=== PATIENT | male | born 1995 | race Native Hawaiian/Other Pacific Islander ===

== ENCOUNTER 2019-07-08 12:37 | Observation (INO) ==
[2019-07-08] MEDS ORDERED: SODIUM CHLORIDE 0.9% 1000ML 1,000 ML IV ONE (13:10)
[2019-07-08] MEDS ORDERED: ONDANSETRON INJ 2 MG/ML 2 ML VIAL IV STA (13:10)
[2019-07-08 13:22] LABS: Basophils # (auto) 0.02 K/uL (0-0.2); Basophils % (auto) 0.2 %; Eosinophils # (auto) 0.26 K/uL (0-0.5); Eosinophils % (auto) 2.5 %; Hematocrit (blood only) 41.2 % (42-52); Hemoglobin 14.6 g/dL (14.0-18.0); Immature Granulocytes # (auto) 0.01 K/uL (0.00-0.02); Immature Granulocytes % (auto) 0.1 %; Lymphocytes # (auto) 1.14 K/uL (1.2-3.4); Lymphocytes % (auto) 10.9 %; Mean Corpuscular Hemoglobin 31.4 pg (25-34); Mean Corpuscular Hgb Conc 35.4 g/dL (32-36); Mean Corpuscular Volume 88.6 fL (80-100); Monocytes # (auto) 0.59 K/uL (0.11-0.59); Monocytes % (auto) 5.7 %; Neutrophils % (auto) 80.6 %; Platelet Count 278 K/uL (130-400); RDW Coefficient of Variation 13.6 % (11.5-14.5); Red Blood Count 4.65 M/uL (4.7-6.1); White Blood Count 10.42 K/uL (4.8-10.8)
[2019-07-08 13:30] LABS: Appearance Urine Clear (Clear); Bilirubin Urine Negative (Negative); Blood Urine Negative (Negative); Color Urine Yellow; Glucose Urine UA Negative (Negative); Ketones Urine Negative (Negative); Leukocyte Esterase Urine Negative (Negative); Nitrite Urine Negative (Negative); Protein Urine Negative (Negative); Specific Gravity Urine 1.013 (1.000-1.030); Urobilinogen Urine Negative (Negative); pH Urine 7.5 (4.5-7.5)
[2019-07-08 13:35] LABS: Albumin Level 4.6 gm/dl (3.4-5.0); BUN Creatinine Ratio 14.6 (10-20); Calcium 9.7 mg/dl (8.5-10.1); Creatinine Clr Calc Pharmacy 129.8 ml/min; Est GFR (African American) 126.3
[2019-07-08 13:38] LABS: Albumin Globulin Ratio 1.3 (0.9-2); Bilirubin,Total 0.7 mg/dl (0.2-1); Globulin 3.5 gm/dl (2.5-4.0); Total Protein 8.1 gm/dl (6.4-8.2)
[2019-07-08 14:12] LABS: Prothrombin Time 10.7 Seconds (9.0-12.0)
[2019-07-08] MEDS ORDERED: IOVERSOL 100ml IV PRN (14:29)
--- NOTE | 2019-07-08 14:41 | CT Scan Report ---
CT OF THE ABDOMEN AND PELVIS WITH CONTRAST CLINICAL HISTORY: Abdominal pain with elevated liver function tests. COMPARISON STUDY: None. TECHNIQUE: Following IV administration of 95 mL of Optiray-320, axial images of the abdomen and pelvi s were obtained from the lung bases to the proximal femurs. Images were reviewed in the axial, sagitt al, and coronal planes. IV contrast was administered without complication. Automated exposure contro l was utilized for the study. A dose lowering technique was utilized adhering to the principles of A BRIDGER. CT DOSE: 328.17 mGy.cm FINDINGS: Lung bases are unremarkable. No pneumatosis, free air or portal venous gas is present. The liver, spleen, adrenal glands, kidneys and pancreas are unremarkable. There is no biliary or pancreat ic ductal dilatation. No peripancreatic or pericholecystic infiltration is noted. There is no hydrone phrosis. The caliber and wall thickness of small and large bowel are normal. The appendix is normal. There is no lymphadenopathy. No suspicious osseous lesions are present. Major vasculature is patent. IMPRESSION: 1. No acute process within the abdomen or pelvis. Normal appendix. No bowel obstruction. 2. Normal appearance of the liver. No biliary ductal dilatation. ACT 112: Negative or not required by law. Electronically signed by: Moose Guerra M.D. 07/08/2019 2:40 PM
--- NOTE | 2019-07-08 14:43 | Emergency Department Note ---
Impression & Plan Abdominal pain, Transaminitis ED Provider Note NAME: JACKI RICKS AGE: 24 SEX: M : 1995 ARRIVES VIA: Walk-In INFORMANT: Patient ED PROVIDER(S): Og Mosher DO CHIEF COMPLAINT: Abdominal pain HPI: Patient is a 22-year-old male who presents the ER for epigastric abdominal pain which started the past 24 hours. He notes that now it may be worse on the left side and describes it as a 6 out of 10. It comes and goes with medication movement. He admits to nausea but no vomiting. He had 2 loose bowel movements. He notes that he was straining earlier today and had some blood when he wiped notes it was several drops. He denies any dark tarry stools. Denies any chest pain, shortness of breath, dizziness, lightheadedness. Patient denies drinking alcohol regularly and Tylenol use. Does admit to smoking marijuana intermittently for anxiety. No other exacerbating or remitting factors. ROS: See above HPI for pertinent positives & negatives. A total of 10 systems reviewed and were otherwise negative. PAST MEDICAL HISTORY:Anxiety PAST SURGICAL HISTORY:None FAMILY HISTORY:See Below SOCIAL HISTORY:Rare alcohol use HOME MEDICATIONS:See Below ALLERGIES:See Below VITALS:See Below PHYSICAL EXAMINATION: GENERAL: Sitting up in bed, alert, well appearing, well nourished, no distress, non-toxic EYE EXAM: normal conjunctiva. OROPHARYNX: no exudate, no erythema, lips, buccal mucosa, and tongue normal and mucous membranes are moist NECK: supple, no nuchal rigidity, no adenopathy, non-tender LUNGS: Clear to auscultation. Normal chest wall mechanics HEART: no murmurs, S1 normal and S2 normal ABDOMEN: abdomen soft, diffuse tenderness worse in the epigastric region, normo- active bowel sounds, no masses, no rebound or guarding. BACK: Back is symmetrical on inspection and there is no deformity, no midline tenderness, no CVA tenderness. SKIN: no rashes and no bruising UPPER EXTREMITIES: upper extremities are grossly normal. LOWER EXTREMITIES: No pitting edema. NEURO EXAM: Normal sensorium, cranial nerves II-XII grossly intact, normal speech, no gross weakness of arms, no gross weakness of legs. MEDICAL DECISION MAKING: Patient is a 22-year-old male who presents the ER for abdominal pain which started in the right upper quadrant. Started about 24 hours ago. He denies any other significant past medical history. Denies regular alcohol use and Tylenol use. He notes that the pain improved yesterday in the right upper quadrant and is now more diffuse. Did have a bloody bowel movement. IV was established bl ood work was obtained shows no significant leukocytosis or anemia. INR unremarkable. BMP with LFTs was remarkable for AST of 200 and ALT of 600. Alk phos was mildly elevated at 140. Bilirubin unremarkable. Lipase unremarkable. UA was negative. CT abdomen pelvis shows no acute pathology. Patient was given IV fluids. Ultrasound of the right upper quadrant was unremarkable. Discussed with on-call gastroenterology who recommended hepatitis panel and admission and discussed with the hospitalist for observation. Discussed with the patient's father who is an orthopedic surgeon and updated him via telephone at bedside with the patient. Triage Nursing notes reviewed. Prior medical records reviewed Vital Signs: reviewed and remarkable for no significant abnormalities Differential diagnosis: Differential diagnoses includes but is not limited to gastritis, peptic ulcer disease, GERD, gallbladder disease, pancreatitis, small bowel obstruction, acute coronary syndrome, pericarditis, ischemic bowel, irritable bowel disease, irritable bowel syndrome, appendicitis, diverticulitis, malignancy, hernia, urinary tract infection, torsion, [/ectopic (if female)], perforation, trauma, infectious. ER treatment provided: See below Diagnostics interpreted by me: ECG: none Cardiac Monitoring: An order was placed for continuous cardiac monitoring. The monitor shows a rate of 66 with sinus rhythm. Laboratory studies: Please see below. Imaging studies: CT of the abdomen pelvis shows no acute pathology. Ultrasound of the gallbladder was unremarkable. Consultation(s): Discussed with Geoff Chaidez from [facility]. Recommended hepatitis panel with admission. Discussed with Dr. Romero from admitting hospitalist and patient was admitted. ED COURSE: Procedures: none Critical Care: None Past Med/Surg History Social History Feels Safe at Home: Yes Smoking Status: Current some day smoker Allergies Allergies Allergy/AdvReac Type Severity Reaction Status Date / Time iodine AdvReac Rash Unverified 07/08/19 14:26 Home Meds Home Medications Medication Instructions Recorded Confirmed Medical Cannabis 1 dose HS PRN 07/08/19 07/08/19 Results & Data (ED) Vital Signs Vital Signs - 24 hr 07/08/19 12:40 07/08/19 14:38 07/08/19 16:01 Temperature 36.7 C Temperature Source Oral Pulse Rate 77 Pulse Rate [Finger] 73 68 Pulse Rhythm [Finger] Regular Regular Pulse Strength [Finger] Normal Respiratory Rate 16 17 14 Respiratory Effort / Characteristics Non-Labored Spontaneous Non-Labored Spontaneous Non-Labored Spontaneous Respiratory Depth Normal Normal Normal Respiratory Pattern Regular Blood Pressure 131/85 Blood Pressure [Right Arm] 121/60 138/77 Blood Pressure Mean 100 Blood Pressure Mean [Right Arm] 80 97 Blood Pressure Position Sitting Pulse Oximetry 96 98 Oxygen Delivery Method Room Air Room Air Room Air Sepsis Recent Fever Within 48 Hours No Sepsis Action Taken by Nursing No Action Required Laboratory Data Result diagrams: 07/08/19 13:08 07/08/19 13:08 Lab Results 07/08/19 07/08/19 07/08/19 Range/Units 13:05 13:08 13:08 WBC 10.42 (4.8-10.8) K/uL RBC 4.65 L (4.7-6.1) M/uL Hgb 14.6 (14.0-18.0) g/dL Hct 41.2 L (42-52) % MCV 88.6 (80-100) fL MCH 31.4 (25-34) pg MCHC 35.4 (32-36) g/dL RDW Std Deviation 44.0 (36.4-46.3) fL RDW Coeff of Kiki 13.6 (11.5-14.5) % Plt Count 278 (130-400) K/uL MPV 10.0 (7.4-10.4) fL Immature Gran % (Auto) 0.1 % Neut % (Auto) 80.6 % Lymph % (Auto) 10.9 % Preston % (Auto) 5.7 % Eos % (Auto) 2.5 % Baso % (Auto) 0.2 % Immature Gran # (Auto) 0.01 (0.00-0.02) K/uL Neut # (Auto) 8.40 H (1.4-6.5) K/uL Lymph # (Auto) 1.14 L (1.2-3.4) K/uL Preston # (Auto) 0.59 (0.11-0.59) K/uL Eos # (Auto) 0.26 (0-0.5) K/uL Baso # (Auto) 0.02 (0-0.2) K/uL PT (9.0-12.0) Seconds INR (0.9-1.1) Sodium 137 (136-145) mmol/L Potassium 4.0 (3.5-5.1) mmol/L Chloride 105 (98-107) mmol/L Carbon Dioxide 27 (21-32) mmol/L Anion Gap 5.0 (3-11) BUN 14 (7-18) mg/dl Creatinine 0.98 (0.6-1.4) mg/dl Est Cr Clr Drug Dosing 129.8 ml/min Est GFR ( Amer) 126.3 Est GFR (Non-Af Amer) 109.0 BUN/Creatinine Ratio 14.6 (10-20) Glucose 118 H (70-99) mg/dl Calcium 9.7 (8.5-10.1) mg/dl Total Bilirubin 0.7 (0.2-1) mg/dl AST 206 H (15-37) U/L ALT 608 H (12-78) U/L Alkaline Phosphatase 140 H (45-117) U/L Total Protein 8.1 (6.4-8.2) gm/dl Albumin 4.6 (3.4-5.0) gm/dl Globulin 3.5 (2.5-4.0) gm/dl Albumin/Globulin Ratio 1.3 (0.9-2) Lipase 89 (73-393) U/L Urine Color Urine Appearance (Clear) Urine pH (4.5-7.5) Ur Specific [place] (1.000-1.030) Urine Protein (Negative) Urine Glucose (UA) (Negative) Urine Ketones (Negative) Urine Blood (Negative) Urine Nitrite (Negative) Urine Bilirubin (Negative) Urine Urobilinogen (Negative) Ur Leukocyte Esterase (Negative) Hep Bs Antigen Neg (Neg) 07/08/19 07/08/19 Range/Units 13:08 13:15 WBC (4.8-10.8) K/uL RBC (4.7-6.1) M/uL Hgb (14.0-18.0) g/dL Hct (42-52) % MCV (80-100) fL MCH (25-34) pg MCHC (32-36) g/dL RDW Std Deviation (36.4-46.3) fL RDW Coeff of Kiki (11.5-14.5) % Plt Count (130-400) K/uL MPV (7.4-10.4) fL Immature Gran % (Auto) % Neut % (Auto) % Lymph % (Auto) % Preston % (Auto) % Eos % (Auto) % Baso % (Auto) % Immature Gran # (Auto) (0.00-0.02) K/uL Neut # (Auto) (1.4-6.5) K/uL Lymph # (Auto) (1.2-3.4) K/uL Preston # (Auto) (0.11-0.59) K/uL Eos # (Auto) (0-0.5) K/uL Baso # (Auto) (0-0.2) K/uL PT 10.7 (9.0-12.0) Seconds INR 1.0 (0.9-1.1) Sodium (136-145) mmol/L Potassium (3.5-5.1) mmol/L Chloride (98-107) mmol/L Carbon Dioxide (21-32) mmol/L Anion Gap (3-11) BUN (7-18) mg/dl Creatinine (0.6-1.4) mg/dl Est Cr Clr Drug Dosing ml/min Est GFR ( Amer) Est GFR (Non-Af Amer) BUN/Creatinine Ratio (10-20) Glucose (70-99) mg/dl Calcium (8.5-10.1) mg/dl Total Bilirubin (0.2-1) mg/dl AST (15-37) U/L ALT (12-78) U/L Alkaline Phosphatase (45-117) U/L Total Protein (6.4-8.2) gm/dl Albumin (3.4-5.0) gm/dl Globulin (2.5-4.0) gm/dl Albumin/Globulin Ratio (0.9-2) Lipase (73-393) U/L Urine Color Yellow Urine Appearance Clear (Clear) Urine pH 7.5 (4.5-7.5) Ur Specific [place] 1.013 (1.000-1.030) Urine Protein Negative (Negative) Urine Glucose (UA) Negative (Negative) Urine Ketones Negative (Negative) Urine Blood Negative (Negative) Urine Nitrite Negative (Negative) Urine Bilirubin Negative (Negative) Urine Urobilinogen Negative (Negative) Ur Leukocyte Esterase Negative (Negative) Hep Bs Antigen (Neg) Administered Medications Ioversol (Optiray 320 100ml) 95 ml IV ONCE PRN PRN Reason: Interaction Checking Stop: 07/12/19 14:28 Last Admin: 07/08/19 14:30 Dose: 95 ml Documented by: [id number] Discontinued Medications Sodium Chloride (Nss 1000ml) 1,000 mls @ 999 mls/hr IV .Q1H1M ONE Stop: 07/08/19 14:10 Last Infusion: 07/08/19 14:23 Dose: 0 mls/hr Documented by: [id number] Admin: 07/08/19 13:15 Dose: 999 mls/hr Documented by: [id number] Ondansetron HCl (Zofran) 4 mg IV NOW STA Stop: 07/08/19 13:11 Last Admin: 07/08/19 13:21 Dose: 4 mg Documented by: [id number] Discharge Plan Visit Data Chief Complaint: Abdominal Pain Stated Complaint: ABDOMINAL PAIN, DIARRHEA, BLODD IN STOOL THIS [facility] ED Provider: Og Mosher Discharge Problem: Abdominal pain, Transaminitis Forms Stand Alone Forms: [employer] Prescriptions Prescriptions: No Action Medical Cannabis 0 mg 1 dose HS PRN (Reason: Anxiety) RF: 0 Referrals Referrals: PCP,NO [Primary Care Provider] - Discharge Problem: Abdominal pain Qualifiers: Abdominal location: unspecified location Qualified Code(s): R10.9 - Unspecified abdominal pain
--- NOTE | 2019-07-08 16:34 | Ultrasound Report ---
US gallbladder HISTORY: 24 years-old Male Transaminitis with right upper quadrant abdominal pain acute right upper quadrant abdominal pain COMPARISON: CT abdomen and pelvis of same day TECHNIQUE: Multiple real-time sonographic images of the abdominal right upper quadrant were obtained assessing grayscale appearance and color flow FINDINGS: Visualized pancreas is unremarkable. The liver is unremarkable without focal mass or intrahepatic dorina iary ductal dilation. The gallbladder is unremarkable without cholelithiasis, wall thickening or azam cholecystic fluid. Sonographic Post sign was not reported. Normal common bile duct, 3 mm. The image d right kidney is unremarkable without hydronephrosis. IMPRESSION: Unremarkable right upper quadrant abdominal ultrasound. ACT 112: Negative or not required by law. The above report was generated using voice recognition software. It may contain grammatical, syntax o r spelling errors. Electronically signed by: Ross Monsalve M.D. 07/08/2019 4:32 PM
[2019-07-08 17:00] LABS: Hepatitis B Surface Antigen Neg (Neg)
[2019-07-08 17:29] LABS: Hepatitis C IgG 13Yrs+Old_Rflx Neg (Neg)
--- NOTE | 2019-07-08 18:08 | History & Physical Report ---
Date of Service July 08, 2019 Assessment & Plan (1) Transaminitis: Unclear etiology. Patient's lab work is essentially normal outside of elevated AST/ALT. Abdominal pain has improved. For now we will treat conservatively with bowel rest and IV fluids. Start clear liquid diet. Repeat LFTs in the morning. If they do increase, continue work-up for other causes of hepatitis. Otherwise consider advancing diet. I do see that the case was previously discussed with GI by the ER and will consult on further recommendations. History of Present Illness Primary Care Provider: NO PCP This is a 24-year-old male without past medical history presents with a complaint abdominal pain. Patient is a good historian. Patient states that the pain started yesterday in the middle of the day. It was mild at first and had started in the right upper quadrant. It moved to the periumbilical region became more severe. He tells me it worsened overnight was quite severe during the day which prompted his evaluation emergency room. At time my evaluation he tells me the pain is improved but not entirely gone. He did have a poor appetite and did not eat anything since yesterday. He has had no nausea or vomiting. He has had no fever or chills. He did have 2 small bowel movements, the second accompanied with a small amount of bright red blood which she felt may have been from straining. He has not noticed any jaundiced. On evaluation, work-up is been mostly negative outside of elevated transaminases. Other markers such as alk phos, bilirubin, and other labs are essentially normal. CT scan of the abdomen along with ultrasound of the biliary tract are all unremarkable as well. Patient is being placed in observation to follow laboratory work. Allergies Allergy/AdvReac Type Severity Reaction Status Date / Time iodine AdvReac Rash Unverified 07/08/19 14:26 Home Medications Home Medications Medication Instructions Recorded Confirmed Type Medical Cannabis 1 dose HS PRN 07/08/19 07/08/19 History Past Med/Surg History Social History Feels Safe at Home: Yes Smoking Status: Current some day smoker Review of Systems Constitutional: no fever, no chills, no weakness, no weight loss and no weight gain Eyes: as per Subjective / HPI Respiratory: no cough, no chest congestion, no dyspnea and no dyspnea on exertion Cardiovascular: no chest pain, no orthopnea, no palpitations, no lightheadedness and no edema Gastrointestinal: + abdominal pain and + blood in stools; no heartburn, no nausea, no vomiting, no constipation and no diarrhea/loose stools Musculoskeletal: no back pain, no neck pain, no joint pain, no stiffness and no myalgia Integumentary: no rash Neurologic: no gait abnormality, no unsteadiness, no falls and no generalized weakness Physical Exam Constitutional: cooperative; no acute distress Nonjaundiced and anicteric Neck: trachea midline, no thyromegaly Respiratory: normal respiratory effort Auscultation: lungs clear to auscultation bilaterally; no crackles, no rales, no rhonchi and no wheezes Cardiovascular: Rate/Rhythm: regular rate and regular rhythm Heart Sounds: normal S1, normal S2 and + murmur Gastrointestinal (Abdomen): Inspection/Auscultation: abdomen normal to inspection Percussion/Palpation: abdomen soft; abdomen nontender, no guarding, abdomen not rigid and no hepatosplenomegaly Minimal subjective tenderness without rigidity Skin: no rashes, warm and dry Results & Data Results & Data ([facility]) Vital Signs (Past 12 Hours) Vital Signs Temp Pulse Pulse Resp BP BP Pulse Ox 07/08/19 16:01 68 14 138/77 07/08/19 14:38 73 17 121/60 98 07/08/19 12:40 36.7 C 77 16 131/85 96 Laboratory Results WBCs of 10.4, hemoglobin of 14.6, hematocrit of 41.2, platelet 278. INR of 1. Sodium 137, potassium 4, chloride 105, CO2 of 27, BUN of 14, creatinine 0.98. Glucose 118. Total bilirubin is 0.7. AST is 206 with an ALT of 608. Alk phos is 140. Total protein is 8.1 with an albumin of 4.6. Lipase is 89. Urine is essentially negative. Serology shows negative hep B antigen and hep C antibody, the rest is pending. Diagnostic Findings US gallbladder HISTORY: 24 years-old Male Transaminitis with right upper quadrant abdominal pain acute right upper quadrant abdominal pain COMPARISON: CT abdomen and pelvis of same day TECHNIQUE: Multiple real-time sonographic images of the abdominal right upper quadrant were obtained assessing grayscale appearance and color flow FINDINGS: Visualized pancreas is unremarkable. The liver is unremarkable without focal mass or intrahepatic biliary ductal dilation. The gallbladder is unremarkable without cholelithiasis, wall thickening or pericholecystic fluid. Sonographic Post sign was not reported. Normal common bile duct, 3 mm. The imaged right kidney is unremarkable without hydronephrosis. IMPRESSION: Unremarkable right upper quadrant abdominal ultrasound. --- CT OF THE ABDOMEN AND PELVIS WITH CONTRAST CLINICAL HISTORY: Abdominal pain with elevated liver function tests. COMPARISON STUDY: None. TECHNIQUE: Following IV administration of 95 mL of Optiray-320, axial images of the abdomen and pelvis were obtained from the lung bases to the proximal femurs. Images were reviewed in the axial, sagittal, and coronal planes. IV contrast was administered without complication. Automated exposure control was utilized for the study. A dose lowering technique was utilized adhering to the principles of ALARA. CT DOSE: 328.17 mGy.cm FINDINGS: Lung bases are unremarkable. No pneumatosis, free air or portal venous gas is present. The liver, spleen, adrenal glands, kidneys and pancreas are unremarkable. There is no biliary or pancreatic ductal dilatation. No peripancreatic or pericholecystic infiltration is noted. There is no hydronephrosis. The caliber and wall thickness of small and large bowel are normal. The appendix is normal. There is no lymphadenopathy. No suspicious osseous lesions are present. Major vasculature is patent. IMPRESSION: 1. No acute process within the abdomen or pelvis. Normal appendix. No bowel obstruction. 2. Normal appearance of the liver. No biliary ductal dilatation. PG Care Time/CCT Total # of Minutes Spent Total Time Spent with Patient: Total time spent is greater than 50% in coordination of care (as documented) at patient's floor/unit and/or counseling patient: Coding Level of Care Code 57801 OBS Care - Level 3 Diagnoses Transaminitis R74.0
[2019-07-08] MEDS ORDERED: ONDANSETRON INJ 2 MG/ML 2 ML VIAL IV PRN (19:46)
[2019-07-08] MEDS: SODIUM CHLORIDE 0.9% 1000ML 1,000 ML IV SCH (20:25)
[2019-07-09 06:09] LABS: Basophils # (auto) 0.03 K/uL (0-0.2); Basophils % (auto) 0.4 %; Eosinophils # (auto) 0.46 K/uL (0-0.5); Eosinophils % (auto) 5.5 %; Hematocrit (blood only) 39.4 % (42-52); Hemoglobin 13.8 g/dL (14.0-18.0); Immature Granulocytes # (auto) 0.02 K/uL (0.00-0.02); Immature Granulocytes % (auto) 0.2 %; Lymphocytes # (auto) 2.15 K/uL (1.2-3.4); Lymphocytes % (auto) 25.5 %; Mean Corpuscular Hemoglobin 31.7 pg (25-34); Mean Corpuscular Volume 90.6 fL (80-100); Mean Platelet Volume 10.1 fL (7.4-10.4); Monocytes # (auto) 0.77 K/uL (0.11-0.59); Monocytes % (auto) 9.1 %; Neutrophils # (auto) 4.99 K/uL (1.4-6.5); Neutrophils % (auto) 59.3 %; Platelet Count 267 K/uL (130-400); RDW Coefficient of Variation 13.6 % (11.5-14.5); RDW Standard Deviation 45.1 fL (36.4-46.3); Red Blood Count 4.35 M/uL (4.7-6.1); White Blood Count 8.42 K/uL (4.8-10.8)
[2019-07-09 06:46] LABS: BUN Creatinine Ratio 10.3 (10-20); Calcium 9.2 mg/dl (8.5-10.1); Creatinine Clr Calc Pharmacy 123.5 ml/min; Est GFR (Non-African American) 102.6
[2019-07-09 06:49] LABS: Albumin Globulin Ratio 1.2 (0.9-2); Bilirubin,Total 0.9 mg/dl (0.2-1); Globulin 3.4 gm/dl (2.5-4.0); Total Protein 7.4 gm/dl (6.4-8.2)
[2019-07-09] MEDS: SODIUM CHLORIDE 0.9% 1000ML 1,000 ML IV SCH (08:58)
--- NOTE | 2019-07-09 08:59 | Hospitalist Progress Note ---
Date of Service July 09, 2019 Assessment & Plan (1) Transaminitis: - Unclear etiology. - elevated AST/ALT and alk phos have slightly improved compared to admission. - Abdominal pain has improved. -bowel rest and IV fluids. Start clear liquid diet. - Checking hep A and B - Follow CMV and EBV Admission and Anticipated Discharge Date Admission Date: July 08, 2019 Results & Data Results & Data ([facility]) Vital Signs (Past 12 Hours) Vital Signs Temp Pulse Resp BP Pulse Ox 07/09/19 07:30 36.5 C 69 18 115/69 97 07/08/19 23:16 37.0 C 62 20 124/60 98 PG Care Time/CCT Total # of Minutes Spent Total Time Spent with Patient: Total time spent is greater than 50% in coordination of care (as documented) at patient's floor/unit and/or counseling patient: Coding Diagnoses Transaminitis R74.0
--- NOTE | 2019-07-09 09:46 | Gastrointestinal Consultation ---
Date of Consultation July 09, 2019 Assessment & Plan (1) Transaminitis: The transaminitis and pain likely represent a viral illness as imaging is normal and LFTs are improving today. Also considered is autoimmune liver diseases. Hep B/C have been ruled out. Plan: Viral serology: Azar Allen, Monospot, Parvovirus, CMV. Autoimmune labs/testing for hemochromatosis and alpha-1 antitrypsin deficiency : DAISY, AMA, ASMA, iron, ferritin, ceruloplasmin, alpha-1 antitrysin level. No contraindication to discharge today. I will place orders for LFTs in the [facility] system - that he can get drawn at [facility] in 2-3 days. After results are received, will order f/u tests as appropriate. Present on Admission?: Yes (2) Abdominal pain: Gallbladder disease and choledocholithiasis has been ruled out with normal liver imaging. Pain likely part of a viral illness. Present on Admission?: Yes Supervising Physician Co-Signing Physician Notes Late entry: patient was seen and examined on 07/08 with VIV Brown whose note reflects our findings and plan. History of Present Illness Reason for Consultation: Elevated LFTs Requesting Physician: Dr. Rivera Attending Physician: Tex Rivera History of Present Illness Mr. 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 He presented to the ED yesterday for diffuse abdominal discomfort and bloating (describes feeling constipated). The pain was present on awakening and began in the RUQ. It was moderate in severity and migrated to the periumbilical area. He strained to pass two formed BMs, and had a small amt of bright red blood drip into the toilet at the time of the second BM. Otherwise no rectal bleeding. No significant nausea, no vomiting. Denies any other viral symptoms: no sore throat, no joint pain/redness/swelling, no enlarged lymph nodes. No dark urine. No yellow eyes or skin. He did have a mild URI in the 2nd week of May but did took only one or two doses of tylenol for this and denies any recent tylenol use. Tells me he does not drink alcohol. Rare NSAID use. Does smoke one marijuana/night to tx anxiety and improve sleep. Denies any other recreational drug use. No OTC supplements. No recent antibiotics. He does have a family hx of elevated LFTs in Grandmother, mother, brother. He believes it is related to Azar Allen Virus. His father is an orthopedic surgeon. The pt would like us to speak with his parents. On arrival, the pt's transaminases were elevated: AST 608->512, AST 206->157. Alk Phos, bilirubin and lipase are normal. US, CT also normal w/o any liver abnormalities and no biliary ductal dilation. The pt feels well this morning, is hungry and asks if possible to be discharged today. Allergies Allergy/AdvReac Type Severity Reaction Status Date / Time iodine AdvReac Rash Unverified 07/08/19 14:26 Patient History Social History Preferred Language: Azeri Communication Ability: Effective Pattern And Chain Maker Required: No Beliefs That Will Affect Care: None Current Living Situation: Alone Other Information That Helps Us Care for You: No Feels Safe at Home: Yes Safety Concerns: Feels Safe At This Time Smoking Status: Never smoker Do You Dip or Chew Tobacco: No ; Second Hand Exposure: No ; Tobacco Cessation Education Requested by Patient: No Hx Alcohol Use: Yes Alcohol type: beer, wine and hard liquor Hx Substance Use: Yes substance use type: marijuana Last Used Substance: Days (ago) Last Used Substance Other:: Yesterday Review of Systems Review of Systems: ROS: Gen: Denies weakness, fevers, weight loss Eyes: No eye redness, or pain, no recent vision changes Resp: No SOB, no cough Cardio: No palpitations/irregular beats, no chest pain GI: See HPI : Denies pain on urination Skin: No jaundice, itching or new rashes Physical Exam Constitutional: WD/WN, vitals as above Eyes: PERRL, conjunctivae normal, anicteric sclerae ENMT: external ear and nose normal, oropharynx normal Very mild clear post nasal drip but no tonsillar enlargement or exudate, no pharyngeal erythema or redness. Neck: trachea midline, no thyromegaly No enlarged anterior, posterior or occipital nodes. Respiratory: normal respiratory effort, lungs clear to auscultation Cardiovascular: RRR, no murmur, no edema Gastrointestinal (Abdomen): normal bowel sounds, soft, nontender, no hepatosplenomegaly External anal inspection and digital rectal exam normal and no blood on return. Musculoskeletal: no cyanosis or clubbing, extremities motor strength 5/5 Skin: no rashes, warm and dry no jaundice Neurologic: PERRL, EOMI, accommodation nl, no face palsy, no dysarthria Psychiatric: A+Ox3, euthymic affect Lymphatic: no cervical or axillary lymphadenopathy Results & Data ([facility]) Vital Signs (Past 12 Hours) Vital Signs Temp Pulse Resp BP Pulse Ox 07/09/19 07:30 36.5 C 69 18 115/69 97 07/08/19 23:16 37.0 C 62 20 124/60 98 (1) Abdominal pain Abdominal location: unspecified location Qualified Code(s): R10.9 - Unspecified abdominal pain
--- NOTE | 2019-07-09 15:00 | Discharge Summary ---
Date of Service July 09, 2019 Admission HPI Per Admitting Provider This is a 24-year-old male without past medical history presents with a complaint abdominal pain. Patient is a good historian. Patient states that the pain started yesterday in the middle of the day. It was mild at first and had started in the right upper quadrant. It moved to the periumbilical region became more severe. He tells me it worsened overnight was quite severe during the day which prompted his evaluation emergency room. At time my evaluation he tells me the pain is improved but not entirely gone. He did have a poor appetite and did not eat anything since yesterday. He has had no nausea or vomiting. He has had no fever or chills. He did have 2 small bowel movements, the second accompanied with a small amount of bright red blood which she felt may have been from straining. He has not noticed any jaundiced. On evaluation, work-up is been mostly negative outside of elevated transaminases. Other markers such as alk phos, bilirubin, and other labs are essentially normal. CT scan of the abdomen along with ultrasound of the biliary tract are all unremarkable as well. Patient is being placed in observation to follow laboratory work. Admission Exam Per Admitting Provider Constitutional: cooperative; no acute distress Nonjaundiced and anicteric Neck: trachea midline, no thyromegaly Respiratory: normal respiratory effort Auscultation: lungs clear to auscultation bilaterally; no crackles, no rales, no rhonchi and no wheezes Cardiovascular: Rate/Rhythm: regular rate and regular rhythm Heart Sounds: normal S1, normal S2 and + murmur Gastrointestinal (Abdomen): Inspection/Auscultation: abdomen normal to inspection Percussion/Palpation: abdomen soft; abdomen nontender, no guarding, abdomen not rigid and no hepatosplenomegaly Minimal subjective tenderness without rigidity Skin: no rashes, warm and dry Principal Diagnosis Transaminitis due to unknown viral etiology Discharge Exam General: awake, alert, no apparent distress Head: Normocephalic, atraumatic ENT: PERRL, EOMI, no pharyngeal exudate, mucous membranes moist Chest: Clear to auscultation, on room air, no adventitious breath sounds Cardiac: Regular rate and rhythm, no murmur, no JVD, normal peripheral pulses, good capillary refill Abdominal: NABS x 4 quadrants, soft, nondistended, minimally tender to palpation in mid-abdomen, no rebound, guarding Extremities: Normal inspection, no peripheral edema or erythema, calfs nontender to palpation Psych: Normal mood and affect Neuro: AAO x 3, strength intact bilaterally and rated 5/5, no motor deficits, speech is clear, no peripheral sensory deficits Discharge Data Allergies Allergy/AdvReac Type Severity Reaction Status Date / Time iodine AdvReac Rash Unverified 07/08/19 14:26 Consultations 07/08/19 15:44 ED Decision to Admit Stat 07/08/19 20:07 Consult Gastroenterology Routine Ordered Studies 07/08/19 13:50 CT abd pelvis IV con only Stat 07/08/19 15:47 US gallbladder Stat Hospital Course (1) Transaminitis: - Unclear etiology but is likely viral - elevated AST/ALT and alk phos have slightly improved compared to admission. - Abdominal pain has improved. -bowel rest and IV fluids. Pt tolerated normal diet for lunch, continue low fat diet once discharged and advance as tolerated. - Hep B and C are negative, hep A pending. - Follow CMV and EBV - GI consulted - checking DAISY, parvovirus, Actin Ab IgG, Alpha-1 antitripsin, Anti-mitochondrial Ab - plan to have repeat LFTs drawn in 3 days, labs to be sent to [facility], and from there will determine when the next set of labs will be. -discussed marijuana use - pt has Rx from [place]. Counselled on cessation. Total Time Total Time Spent Total Time Spent (In Minutes): 33 Discharge Plan Discharge Items Patient Disposition: Home - Self-Care Reason For Visit: TRANSAMINITIS Discharge Diagnosis: Transaminitis Condition on Discharge: Good Activity: Resume your previous activity Lifting: Gradually increase as tolerated Sexual Activity: When tolerated Exercise/Sports: Gradually increase as tolerated Driving/Machine Use: No limitations Non-emergency contact: Primary Care Provider and Netbackup Engineer Call non-emergency contact if: your symptoms worsen, your pain is not controlled and you have a fever Follow-up/Referrals: [facility] [Nurse Practitioner] - (Within 2-4 weeks, the office will call you with an appointment) PCP,NO [Primary Care Provider] - Diet: Regular Ambulatory Orders: Hepatic Function (Liver) Panel (Routine) Timeframe: 3 Days Location: Determined by Patient Ordered By: Zoë Constantino Addtl Attending Provider Instructions: You were admitted to [facility] due to abdominal pain and diagnosed with tr ansaminitis, this is an elevation in liver enzymes. This is likely to have occurred to an unknown viral infection. During your stay here you were treated with supportive care, medications, fluids and your symptoms improved. Imaging studies which were completed include a CT of the abdomen and pelvis which were negative with normal appearance of the liver. A gallbladder ultrasound was done and was negative. Blood studies which were completed in the hospital included tests for Hepatitis C and B with were NEGATIVE. Hepatitis A in process. Other viral screening includes EBV and CMV are in process. Continue to advance your diet as tolerated, avoiding high fat foods for the first few days after discharge. Call your PCP, or return to the hospital if your abdominal pain returns or worsens. Medications: Continue taking you medications as prescribed. DO NOT SMOKE MARIJUANA. Appointments: Follow up with PCP within 2-4 weeks, you will be contacted for an appointment. You will be contacted by Gastroenterology with results from the blood work and be scheduled for a repeat LFT (liver function test) within 3 DAYS. After this you will need more blood work to ensure improvement of LFTs. Pending Studies at Discharge: Yes Studies:: Hep A EBV CMV parvovirus DAISY Actin Ab IgG Alpha-1 antitripsin Anti-mitochondrial Ab Stand-Alone Forms: [place], Smoking Cessation Medications and DC Order Prescriptions: Discontinued Medical Cannabis 0 mg 1 dose HS PRN (Reason: Anxiety) RF: 0 Discharge Orders: Discharge Order (Routine); Ordered 07/09/19 Ordered By: Zoë Randle/Other Patient Handouts: Abdominal Pain, Pain Meds Admission Data Admit Date/Time: 07/08/19 18:29 Attending Provider: Tex Rivera Admit Provider: Caesar Yao Primary Care Provider: PCP,NO Other Providers: Tex Rivera ; [facility] Other Interventions: Discharge Summary Assessment (RN) Last Done: 07/09/19 11:15 DC Date/Time DO NOT enter until pt leaves facility: 07/09/19 13:48 Coding Level of Care Code D/C Day Management >30 mins Diagnoses Transaminitis R74.0
[2019-07-10 05:10] LABS: Hepatitis A Antibody IgM NON-REACTIVE (NON-REACTIVE); Hepatitis B Core Antibody IgM NON-REACTIVE (NON-REACTIVE)
[2019-07-12 10:40] LABS: EBV Nuclear Ag Antibody <18.00 U/mL; EBV Virus Capsid Ag IgG Ab <18.00 U/mL; Epstein Barr Virus Early Ag Ab <9.00 U/mL
[2019-07-12 14:45] LABS: Alpha 1 Antitrypsin 137 mg/dL (83-199); Anti Nuclear Antibody Screen NEGATIVE (NEGATIVE); Ceruloplasmin 25 mg/dL (18-36)
[2019-07-14 17:10] LABS: CMV IgG Antibody <0.60 U/mL; CMV IgM Antibody <30.00 AU/mL; Coxsackie A10 <1:8; Coxsackie A16 <1:8; Coxsackie A2 <1:8; Coxsackie A4 <1:8; Coxsackie A7 <1:8; Coxsackie A9 <1:8; Parvovirus IgG 6.1 (<0.9); Parvovirus IgM 0.1 (<0.9)
== END 2019-07-09 13:48 | disposition home or self-care (01) ==
LOC: 3E 12:37 → ED 12:37 → SUATTDRO 18:29 → 3E 19:00